=== PATIENT | male | born 1950 | race Caucasian/White ===

== ENCOUNTER 2019-11-21 00:06 | Emergency (ER) | payer MEDICARE, SELFPAY ==
--- NOTE | ~2019-11-21 | XR_ITS ---
EXAMINATION: CT abdomen pelvis wo con, XR abdomen/kub 1V DATE: 11/21/2019 01:17 INDICATION: Left flank pain. TECHNIQUE: 1. Computed tomography (CT) of the abdomen and pelvis was performed without intravenous contrast. Aut omated exposure control and iterative reconstruction technique were employed. The dose-length product was 590.76 mGy-cm. 2. Supine AP view of the abdomen and pelvis was obtained. COMPARISON: 07/04/2017 FINDINGS: Minimal atelectasis at the lingula and right middle lobe. Heart size is normal. Atherosclerotic coron elly artery calcification. No pericardial or pleural effusion. Splenic calcifications consistent with old granulomatous disease. Liver, gallbladder, pancreas and bilateral adrenal glands are normal. Ther e is mild colonic diverticulosis with a sigmoid predominance. There is no adjacent inflammatory huang ge to suggest diverticulitis. Small bowel and appendix are normal. Small fat-containing left inguinal hernia. 2 mm stone at the left ureterovesicular junction with mild left hydronephrosis. Additional 2 mm stone in the mid left kidney and a couple 2 mm stones in the right kidney. No right-sided ureteral stones or hydronephrosis. Bilateral renal cysts the largest measuring 9.9 cm at the lower pole of the left k idney. Prostatomegaly. No free intraperitoneal gas or fluid. No pathologically enlarged abdominal or pelvic lymphadenopathy. Mild lumbar spondylosis. KUB: The seventh of the left ureterovesicular junction appears subtly visible projecting along the left ma rgin of the inferior sacrum. Phlebolith in the right hemipelvis. Additional stones in the left and ri ght kidney are also visible on the plain radiographs as is the large exophytic cyst arising from the lower pole of the left kidney. Normal bowel gas pattern. IMPRESSION: 1. Bilateral nephrolithiasis with 2 mm obstructing stone at the left ureterovesicular junction with m ild left hydroureteronephrosis. Reviewed, dictated and finalized at location A. [facility] IMPRESSION: 1. Bilateral nephrolithiasis with 2 mm obstructing stone at the left ureteroves icular junction with mild left hydroureteronephrosis.
[2019-11-21 00:13] VITALS: BP 181/83; PULSE 70; RESP 18; TEMP 36.4; O2SAT 99
[2019-11-21 00:40] LABS: Basophils Absolute Auto 0.1 K/mm3 (0.0-0.1); Basophils Percent Auto 0.6 % (0.2-1.2); Eosinophils Absolute Auto 0.2 K/mm3 (0-0.3); Eosinophils Percent Auto 2.3 % (0-4.4); Hematocrit 42.9 % (42.0-52.0); Hemoglobin 13.7 g/dL (14.0-18.0); Immature Granulocyte Absolute 0.03 K/mm3 (0.00-0.031); Immature Granulocyte Percent A 0.3 % (0-0.5); Lymphocytes Absolute Auto 2.92 K/mm3 (0.9-3.2); Mean Corpuscular HGB Conc 31.9 g/dl (32-36); Mean Corpuscular Hemoglobin 31.1 pg (26-34); Mean Corpuscular Volume 97.5 fl (80-100); Mean Platelet Volume 10.9 fl (7.4-10.4); Monocytes Absolute Auto 0.8 K/mm3 (0.1-0.6); Monocytes Percent Auto 8.4 % (2.6-8.5); Neutrophils Absolute Auto 5.7 K/mm3 (1.3-6.7); Neutrophils Percent Auto 58.4 % (45.5-73.1); Platelet Count Result 205 k/mm3 (150-375); Red Cell Distribution Width 12.2 % (11.5-14.5); White Blood Count 9.7 K/mm3 (4.5-10.0)
--- NOTE | 2019-11-21 00:43 | ED_ITS ---
I attest that this documentation has been prepared under the direction and in t he presence of Diana Qureshi MD. Becky Gan Scribe 11/21/19;00:43 HPI - Abdominal Pain General Chief Complaint: Abdominal Pain Stated Complaint: flank pain Time Seen by Provider: 11/21/19 00:41 Related Data Allergies Allergy/AdvReac Type Severity Reaction Status Date / Time No Known Allergies Allergy Unverified 04/22/19 07:16 Course Vital Signs Vital signs: Vital Signs Temperature 36.4 C L 11/21/19 00:13 Pulse Rate 70 11/21/19 00:13 Respiratory Rate 18 11/21/19 00:13 Blood Pressure 181/83 H 11/21/19 00:13 Pulse Oximetry 99 11/21/19 00:13 Temperature 36.4 C L 11/21/19 00:13 Pulse Rate 70 11/21/19 00:13 Respiratory Rate 18 11/21/19 00:13 Blood Pressure 181/83 H 11/21/19 00:13 Pulse Oximetry 99 11/21/19 00:13 MDM - Abdominal Pain Lab Data Result diagrams: 11/21/19 00:18 11/21/19 00:18 Labs: Lab Results 11/21/19 11/21/19 11/21/19 Range/Units 00:18 00:18 00:19 WBC Pending RBC Pending Hgb Pending Hct Pending MCV Pending MCH Pending MCHC Pending RDW Pending Plt Count Pending MPV Pending Immature Gran % (Auto) Pending Neut % (Auto) Pending Lymph % (Auto) Pending [place] % (Auto) Pending Eos % (Auto) Pending Baso % (Auto) Pending Lymph # (Auto) Pending [place] # (Auto) Pending Eos # (Auto) Pending Baso # (Auto) Pending Abs Immat Gran (auto) Pending Absolute Neuts (auto) Pending Absolute Nucleated RBC Pending Nucleated RBC % Pending Sodium Pending Potassium Pending Chloride Pending Carbon Dioxide Pending BUN Pending Creatinine Pending Estim Creat Clear Calc Pending Estimated GFR Pending Glucose Pending Calcium Pending Urine Color Pending Urine Appearance Pending Urine pH Pending Ur Specific [place] Pending Urine Protein Pending Urine Glucose (UA) Pending Urine Ketones Pending Ur Blood (Man) Pending Urine Nitrate Pending Urine Bilirubin Pending Urine Urobilinogen Pending Leukocyte Esterase Rfl Pending
[2019-11-21 00:44] LABS: Blood Urea Nitrogen 20 mg/dL (9-20); Carbon Dioxide 27 mmol/L (22-30); Chloride 104 mmol/L (98-107); Estimated CRCL calculation 41 ml/min; Estimated Glomerular Filt Rate 46; Glucose 129 mg/dL (75-110); Potassium 4.2 mmol/L (3.4-5.0); Sodium 142 mmol/L (137-145)
--- NOTE | 2019-11-21 00:44 | ED_ITS ---
I attest that this documentation has been prepared under the direction and in t he presence of Diana Qureshi MD. Becky Gan Scribe 11/21/19;00:44 HPI - Female Genitourinary General Chief complaint: Abdominal Pain Stated complaint: flank pain Time Seen by Provider: 11/21/19 00:41 Related Data Allergies Allergy/AdvReac Type Severity Reaction Status Date / Time No Known Allergies Allergy Unverified 04/22/19 07:16 Course Vital Signs Vital signs: Vital Signs Temperature 36.4 C L 11/21/19 00:13 Pulse Rate 70 11/21/19 00:13 Respiratory Rate 18 11/21/19 00:13 Blood Pressure 181/83 H 11/21/19 00:13 Pulse Oximetry 99 11/21/19 00:13 Temperature 36.4 C L 11/21/19 00:13 Pulse Rate 70 11/21/19 00:13 Respiratory Rate 18 11/21/19 00:13 Blood Pressure 181/83 H 11/21/19 00:13 Pulse Oximetry 99 11/21/19 00:13 MDM - Female Genitourinary Lab Data Result diagrams: 11/21/19 00:18 11/21/19 00:18 Labs: Lab Results 11/21/19 11/21/19 11/21/19 Range/Units 00:18 00:18 00:19 WBC Pending RBC Pending Hgb Pending Hct Pending MCV Pending MCH Pending MCHC Pending RDW Pending Plt Count Pending MPV Pending Immature Gran % (Auto) Pending Neut % (Auto) Pending Lymph % (Auto) Pending [place] % (Auto) Pending Eos % (Auto) Pending Baso % (Auto) Pending Lymph # (Auto) Pending [place] # (Auto) Pending Eos # (Auto) Pending Baso # (Auto) Pending Abs Immat Gran (auto) Pending Absolute Neuts (auto) Pending Absolute Nucleated RBC Pending Nucleated RBC % Pending Sodium 142 (137-145) mmol/L Potassium 4.2 (3.4-5.0) mmol/L Chloride 104 (98-107) mmol/L Carbon Dioxide 27 (22-30) mmol/L BUN 20 (9-20) mg/dL Creatinine 1.50 H (0.7-1.3) mg/dL Estim Creat Clear Calc 41 ml/min Estimated GFR 46 L (59 - ) Glucose 129 H (75-110) mg/dL Calcium 9.0 (8.4-10.2) mg/dL Urine Color Pending Urine Appearance Pending Urine pH Pending Ur Specific [place] Pending Urine Protein Pending Urine Glucose (UA) Pending Urine Ketones Pending Ur Blood (Man) Pending Urine Nitrate Pending Urine Bilirubin Pending Urine Urobilinogen Pending Leukocyte Esterase Rfl Pending
--- NOTE | 2019-11-21 00:46 | ED.MALEGU ---
HPI - Male Genitourinary General Chief complaint: Abdominal Pain Stated complaint: flank pain Time Seen by Provider: 11/21/19 00:41 Source: patient and RN notes reviewed Mode of arrival: other Limitations: no limitations History of Present Illness HPI Narrative: Pt is a 69 y/o male who presents to the ED with c/o left flank pain that began yesterday (11/20/19). Pt states that he took pain medication yesterday at 11:40 PM and his sx are currently better. Pt states that he has been passing gas and he had a regular BM yesterday. Pt has a hx of kidney stones and he states his sx are similar to whenever he had a kidney stone. Pt reports resolved nausea, but denies vomiting, testicular pain, and dark colored urine. Pt is taking ASA 81 mg daily. Related Data Allergies Allergy/AdvReac Type Severity Reaction Status Date / Time No Known Allergies Allergy Unverified 04/22/19 07:16 [facility] Past Medical History Medical History (Updated 11/21/19 @ 00:51 by Becky Gan) Gout HTN (hypertension) Hyperlipidemia Kidney stone Surgical History Surgical History (Updated 11/21/19 @ 00:45 by Becky Gan) Hx of CABG x3 Hx of tonsillectomy Course Vital Signs Vital signs: Vital Signs Temperature 36.4 C L 11/21/19 00:13 Pulse Rate 70 11/21/19 00:13 Respiratory Rate 18 11/21/19 00:13 Blood Pressure 181/83 H 11/21/19 00:13 Pulse Oximetry 99 11/21/19 00:13 Temperature 36.4 C L 11/21/19 00:13 Pulse Rate 70 11/21/19 00:13 Respiratory Rate 18 11/21/19 00:13 Blood Pressure 181/83 H 11/21/19 00:13 Pulse Oximetry 99 11/21/19 00:13 MDM - Male Genitourinary Lab Data Result diagrams: 11/21/19 00:18 11/21/19 00:18 Labs: Lab Results 11/21/19 11/21/19 11/21/19 Range/Units 00:18 00:18 00:19 WBC Pending RBC Pending Hgb Pending Hct Pending MCV Pending MCH Pending MCHC Pending RDW Pending Plt Count Pending MPV Pending Immature Gran % (Auto) Pending Neut % (Auto) Pending Lymph % (Auto) Pending [place] % (Auto) Pending Eos % (Auto) Pending Baso % (Auto) Pending Lymph # (Auto) Pending [place] # (Auto) Pending Eos # (Auto) Pending Baso # (Auto) Pending Abs Immat Gran (auto) Pending Absolute Neuts (auto) Pending Absolute Nucleated RBC Pending Nucleated RBC % Pending Sodium 142 (137-145) mmol/L Potassium 4.2 (3.4-5.0) mmol/L Chloride 104 (98-107) mmol/L Carbon Dioxide 27 (22-30) mmol/L BUN 20 (9-20) mg/dL Creatinine 1.50 H (0.7-1.3) mg/dL Estim Creat Clear Calc 41 ml/min Estimated GFR 46 L (59 - ) Glucose 129 H (75-110) mg/dL Calcium 9.0 (8.4-10.2) mg/dL Urine Color Yellow (Yellow) Urine Appearance Cloudy H (Clear) Urine pH 5.0 (5.0-9.0) Ur Specific [place] 1.027 (1.001-1.035) Urine Protein 1+ H (Negative) mg/dL Urine Glucose (UA) Negative (Negative) mg/dL Urine Ketones Negative (Negative) mg/dL Ur Blood (Man) 3+ H (Negative) Urine Nitrate Negative (Negative) Urine Bilirubin Negative (Negative) Urine Urobilinogen Negative (<2.0) mg/dL Leukocyte Esterase Rfl Negative (Negative) [place]ELSEY/UL Urine RBC >75 H (0-2) /hpf Urine WBC 0-3 /hpf Urine Mucus Few H /lpf
[2019-11-21 00:51] LABS: Add Urine Microscopic? YES; Appearance Urine Cloudy (Clear); Bilirubin Urine Negative (Negative); Blood Urine 3+ (Negative); Color Urine Yellow (Yellow); Glucose Urine UA Negative (Negative); Ketones Urine Negative (Negative); Leukocyte Esterase Ur Negative LEU/UL (Negative); Mucus Urine Few /lpf; Nitrate Urine Negative (Negative); Protein Urine 1+ mg/dL (Negative); RBC Urine >75 /hpf (0-2); Specific Grav Ur 1.027 (1.001-1.035); Urobilinogen Urine Negative mg/dL (<2.0); WBC Urine 0-3 /hpf
--- NOTE | 2019-11-21 00:53 | ED.ABDPAIN ---
HPI - Abdominal Pain General Chief Complaint: Abdominal Pain Stated Complaint: flank pain Time Seen by Provider: 11/21/19 00:41 Source: patient and RN notes reviewed Mode of arrival: other Limitations: no limitations History of Present Illness HPI narrative: Pt is a 69 y/o male who presents to the ED with c/o left flank pain that began yesterday (11/20/19). Pt states that he took pain medication yesterday at 11:40 PM and his sx are currently better. Pt states that he has been passing gas and he had a regular BM yesterday. Pt has a hx of kidney stones and he states his sx are similar to whenever he had a kidney stone. Pt reports resolved nausea, but denies vomiting, testicular pain, and dark colored urine. Pt is taking ASA 81 mg daily. MD elicited complaint: flank pain Pertinent past history: kidney stones Onset (ago): day(s) (1) Pain Consistency: other (currently better) Location: L flank Relieving factors: medication Associated symptoms: nausea (resolved) Treatments prior to arrival: other (pain medication) Related Data Allergies Allergy/AdvReac Type Severity Reaction Status Date / Time No Known Allergies Allergy Unverified 04/22/19 07:16 Review of Systems Review of Systems: All systems reviewed & are unremarkable except as noted in HPI and below Gastrointestinal: Gastrointestinal: Reports nausea (resolved) and Denies vomiting Genitourinary: Genitourinary: Reports flank pain (left), Denies testicular pain and Denies other (dark colored urine) PMFSH Past Medical History Medical History (Updated 11/21/19 @ 01:46 by Diana Qureshi MD) Gout HTN (hypertension) Hyperlipidemia Kidney stone Surgical History Surgical History (Updated 11/21/19 @ 00:45 by Becky Gan) Hx of CABG x3 Hx of tonsillectomy Social History Social History (Updated 11/21/19 @ 00:55 by Becky Gan) Smoking status: Never smoker Gender identity (if verbalized by the patient): Male Exam Narrative: Exam Narrative: GENERAL: Well-appearing, well-nourished, and in no acute distress. HEAD: Normocephalic, atraumatic EYES: PERRLA and EOMI, conjunctiva clear without discharge THROAT:Mucous membranes moist, Oropharynx normal without erythema, exudate, peritonsillar swelling or fluctuance NECK: Supple, without lymphadenopathy or mass RESPIRATORY: No respiratory distress, Airway patent, Respirations non-labored, Clear to auscultation without rales, rhonchi or wheeze HEART: Regular rate and rhythm. No murmur heard. Normal peripheral pulses. ABDOMEN: Soft, nontender, nondistended, normal active bowel sounds. No masses. No rebound or guarding, No organomegaly. EXTREMITIES: No edema, normal strength with full range of motion. SKIN: Warm, dry, normal color without rash NEURO: Alert and oriented x3. CN 2-12 grossly intact. No focal deficits. PSYCH: Normal mood and affect. Course Reevaluation(s) Reevaluation #1: I have discussed with patient CT shows right UVJ stone. He states his pain is minimal. Date: 11/21/19 Time: 01:43 Vital Signs Vital signs: Vital Signs Temperature 97.5 F L 11/21/19 00:13 Pulse Rate 70 11/21/19 00:13 Respiratory Rate 18 11/21/19 00:13 Blood Pressure 181/83 H 11/21/19 00:13 Pulse Oximetry 99 11/21/19 00:13 Temperature 98.6 F 11/21/19 01:53 Pulse Rate 81 11/21/19 01:53 Respiratory Rate 16 11/21/19 01:53 Blood Pressure 135/88 11/21/19 01:53 Pulse Oximetry 100 11/21/19 01:53 MDM - Abdominal Pain Lab Data Result diagrams: 11/21/19 00:18 11/21/19 00:18 Labs: Lab Results 11/21/19 11/21/19 11/21/19 Range/Units 00:18 00:18 00:19 WBC 9.7 (4.5-10.0) K/mm3 RBC 4.40 L (4.6-6.20) M/mm3 Hgb 13.7 L (14.0-18.0) g/dL Hct 42.9 (42.0-52.0) % MCV 97.5 (80-100) fl MCH 31.1 (26-34) pg MCHC 31.9 L (32-36) g/dl RDW 12.2 (11.5-14.5) % Plt Count 205 (150-375) k/mm3 MPV 10.9 H (7.4-10.4)
[2019-11-21 01:16] VITALS: BP 140/88; PULSE 88; RESP 16; TEMP 37; O2SAT 100
[2019-11-21] MEDS: TAMSULOSIN HCL 0.4 MG CAPSULE PO (01:52)
[2019-11-21 01:53] VITALS: BP 135/88; PULSE 81; RESP 16; TEMP 37; O2SAT 100
== END 2019-11-21 01:54 | disposition home or self-care (01) ==
PROVIDERS: Emergency Provider General Practice
DX: N13.2 Hydronephrosis with renal and ureteral calculous obstruction (principal); Z79.82 Long term (current) use of aspirin; M10.9 Gout, unspecified; I10 Essential (primary) hypertension; E78.5 Hyperlipidemia, unspecified; Z87.440 Personal history of urinary (tract) infections; I25.10 Atherosclerotic heart disease of native coronary artery without angina pectoris; Z95.1 Presence of aortocoronary bypass graft
CPT/HCPCS: 36415; 74018; 74176; 80048; 81001; 85025; 99284; A9270

== ENCOUNTER → 2021-01-07 06:48 | Outpatient (CLI) | payer MEDICARE, SELFPAY ==
[2021-01-07 16:23] LABS: SARS-CoV-2 RNA PCR Negative
== END ==
DX: Z20.822 Contact with and (suspected) exposure to COVID-19 (principal); R09.89 Other specified symptoms and signs involving the circulatory and respiratory systems
CPT/HCPCS: C9803; U0003; U0005

== ENCOUNTER 2021-04-25 00:40 | Emergency (ER) | payer MEDICARE, SELFPAY ==
--- NOTE | ~2021-04-25 | CT_ITS ---
EXAMINATION: CT abdomen pelvis wo con DATE: 04/25/2021 02:57 INDICATION: Flank pain and hematuria TECHNIQUE: Computed tomography (CT) of the abdomen and pelvis was performed without intravenous contr ast. Automated exposure control and iterative reconstruction technique were employed. The dose-length product was 246.00 mGy-cm. COMPARISON: 11/21/2019 FINDINGS: Minimal atelectasis/scarring at the right middle lobe and lingula. Heart size is normal. Atherosclero tic coronary artery calcific location. No pericardial or pleural effusion. Small sliding-type hiatal hernia. Liver, gallbladder and bilateral adrenal glands are normal. Small dystrophic calcific a cyst at the tail of the pancreas which were present sequela of chronic pancreatitis. Multiple splenic calc ifications consistent with old granulomatous disease. Several low-attenuation left renal cysts the la rgest measuring 10 cm at the lower pole. Bilateral nephrolithiasis with a couple nonobstructing right renal stones measuring 1 mm and 3 mm. There is a 4-5 mm stone at the left ureteropelvic junction res ulting in mild left hydronephrosis and perinephric stranding. No other stones along the ureters or ri ght-sided hydronephrosis. There is mild colonic diverticulosis with descending and sigmoid predominan ce. There is no adjacent inflammatory change to suggest diverticulitis. Small bowel and appendix are normal. Bladder is normal. Prostatomegaly. No free intraperitoneal gas or fluid. No pathologically e nlarged abdominal or pelvic lymphadenopathy. Mild lumbar spondylosis. IMPRESSION: 1. Lateral nephrolithiasis with obstructing 4-5 mm stone at the left ureteropelvic junction with mild left hydronephrosis. Reviewed, dictated and finalized at location A. IMPRESSION: 1. Lateral nephrolithiasis with obstructing 4-5 mm stone at the left ureteropel baldomero junction with mild left hydronephrosis.
[2021-04-25 01:03] VITALS: BP 136/72; PULSE 72; RESP 18; TEMP 37.1; O2SAT 96
[2021-04-25 01:09] LABS: Basophils Absolute Auto 0.1 K/mm3 (0.0-0.1); Basophils Percent Auto 0.4 % (0.2-1.2); Eosinophils Absolute Auto 0.3 K/mm3 (0-0.3); Eosinophils Percent Auto 1.8 % (0-4.4); Hemoglobin 13.8 g/dL (14.0-18.0); Immature Granulocyte Absolute 0.04 K/mm3 (0.00-0.031); Immature Granulocyte Percent A 0.3 % (0-0.5); Lymphocytes Absolute Auto 1.59 K/mm3 (0.9-3.2); Lymphocytes Percent Auto 11.2 % (18.3-44.2); Mean Corpuscular HGB Conc 32.1 g/dl (32-36); Mean Corpuscular Hemoglobin 30.1 pg (26-34); Mean Corpuscular Volume 93.7 fl (80-100); Mean Platelet Volume 10.6 fl (7.4-10.4); Monocytes Absolute Auto 0.8 K/mm3 (0.1-0.6); Monocytes Percent Auto 5.3 % (2.6-8.5); Neutrophils Absolute Auto 11.5 K/mm3 (1.3-6.7); Platelet Count Result 206 k/mm3 (150-375); Red Blood Count 4.59 M/mm3 (4.6-6.20); Red Cell Distribution Width 12.5 % (11.5-14.5); White Blood Count 14.2 K/mm3 (4.5-10.0)
[2021-04-25 01:23] LABS: Anion Gap 10 mmol/L (8-16); Blood Urea Nitrogen 22 mg/dL (9-20); Calcium 9.4 mg/dL (8.4-10.2); Carbon Dioxide 23 mmol/L (22-30); Chloride 106 mmol/L (98-107); Estimated CRCL calculation 39 ml/min; Estimated Glomerular Filt Rate 46; Glucose 175 mg/dL (65-110); Potassium 4.7 mmol/L (3.4-5.0); Sodium 139 mmol/L (137-145)
[2021-04-25 02:06] LABS: Add Urine Microscopic? YES; Appearance Urine Clear (Clear); Bacteria Urine Trace /hpf; Bilirubin Urine Negative (Negative); Blood Urine 3+ (Negative); Color Urine Yellow (Yellow); Glucose Urine UA Negative (Negative); Ketones Urine Negative (Negative); Leukocyte Esterase Ur Negative LEU/UL (Negative); Mucus Urine Rare /lpf; Nitrate Urine Negative (Negative); Protein Urine Negative (Negative); RBC Urine >75 /hpf (0-2); Specific Grav Ur 1.024 (1.001-1.035); Squamous Epithelial Cell Urine Rare /hpf (Few); Urobilinogen Urine Negative mg/dL (<2.0)
[2021-04-25 02:49] VITALS: BP 136/72; PULSE 72; RESP 18; TEMP 37.1; O2SAT 97
[2021-04-25] MEDS: SODIUM CHLORIDE 0.9% IV 1,000 ML 999 ML IV CONT (03:11)
[2021-04-25] MEDS: ONDANSETRON INJ 4 MG/2 ML VIAL IV PUSH (03:13)
[2021-04-25] MEDS: MORPHINE SULFATE (*CRX) 4 MG/ML INJ IV PUSH (03:13)
[2021-04-25] MEDS: KETOROLAC 30 MG/ML VIAL (*BKC) 15 MG IV PUSH (03:14)
--- NOTE | 2021-04-25 03:46 | ED.GENADULT ---
HPI - General Adult General Chief complaint: Abdominal Pain Stated complaint: kidney stones Time Seen by Provider: 04/25/21 02:45 History of Present Illness HPI narrative: Patient 71-year-old gentleman presents the emergency department with chief complaint of left flank pain. Patient reports that he has history of kidney stones and started having pain in his left lower quadrant that radiates to his back. Patient states the pain is sharp reports not improved by anything nor is worsened by patient she had a bit of nausea and one episode of vomiting. Patient denies fevers denies diarrhea. The patient reports that previously has had one episode of kidney stones are required with the but otherwise has not required stent placement for in the past. Related Data Allergies Allergy/AdvReac Type Severity Reaction Status Date / Time No Known Allergies Allergy Verified 04/25/21 03:06 Review of Systems Review of Systems: Narrative: A 10 system review of systems was completed on the patient and is negative except for what is stated in the HPI. Nursing and ancillary documentation was reviewed. [facility] Past Medical History Medical History Gout HTN (hypertension) Hyperlipidemia Kidney stone Surgical History Surgical History Hx of CABG x3 Hx of tonsillectomy Social History Social History Smoking status: Never smoker Gender identity (if verbalized by the patient): Male Exam Narrative: Exam Narrative: GENERAL: Well-appearing, well-nourished, and in no acute distress. HEAD: Normocephalic, atraumatic. EYES: PERRLA and EOMI. ENT: Nares clear, no rhinorrhea or epistaxis. Mucous membranes moist. NECK: Supple. CHEST: Clear to auscultation. No respiratory distress. HEART: Regular rate and rhythm. No murmur heard. Normal peripheral pulses. ABDOMEN: Soft, nontender, nondistended, normal active bowel sounds. EXTREMITIES: Normal range of motion. No edema. SKIN: Warm, dry, no rash. NEURO: No focal deficits. Alert and oriented x3. PSYCH: Normal mood and affect. Course Course Emergency Course: CT scan of the abdomen pelvis showed evidence of a 6 to 7 mm stone in the proximal ureter with mild hydro-nephrosis Vital Signs Vital signs: Vital Signs Temperature 37.1 C 04/25/21 01:03 Pulse Rate 72 04/25/21 01:03 Respiratory Rate 18 04/25/21 01:03 Blood Pressure 136/72 04/25/21 01:03 Pulse Oximetry 96 04/25/21 01:03 Temperature 37.1 C 04/25/21 02:49 Pulse Rate 72 04/25/21 02:49 Respiratory Rate 18 04/25/21 02:49 Blood Pressure 136/72 04/25/21 02:49 Pulse Oximetry 97 04/25/21 02:49 Medical Decision Making Vital Signs Vital Signs: Vital Signs Temperature 37.1 C 04/25/21 01:03 Pulse Rate 72 04/25/21 01:03 Respiratory Rate 18 04/25/21 01:03 Blood Pressure 136/72 04/25/21 01:03 Pulse Oximetry 96 04/25/21 01:03 Temperature 37.1 C 04/25/21 02:49 Pulse Rate 72 04/25/21 02:49 Respiratory Rate 18 04/25/21 02:49 Blood Pressure 136/72 04/25/21 02:49 Pulse Oximetry 97 04/25/21 02:49 Lab Data Result diagrams: 04/25/21 01:02 04/25/21 01:02 Labs: Lab Results 04/25/21 04/25/21 04/25/21 Range/Units 01:02 01:02 01:45 WBC 14.2 H (4.5-10.0) K/mm3 RBC 4.59 L (4.6-6.20) M/mm3 Hgb 13.8 L (14.0-18.0) g/dL Hct 43.0 (42.0-52.0) % MCV 93.7 (80-100) fl MCH 30.1 (26-34) pg MCHC 32.1 (32-36) g/dl RDW 12.5 (11.5-14.5) % Plt Count 206 (150-375) k/mm3 MPV 10.6 H (7.4-10.4) fl Immature Gran % (Auto) 0.3 (0-0.5) % Neut % (Auto) 81.0 H (45.5-73.1) % Lymph % (Auto) 11.2 L (18.3-44.2) % [place] % (Auto) 5.3 (2.6-8.5) % Eos % (Auto) 1.8 (0-4.4) % Baso % (Auto) 0.4 (0.2-1.2) % Lymph # (Au
[2021-04-25] MEDS: TAMSULOSIN HCL 0.4 MG CAPSULE PO (05:40)
[2021-04-25 06:11] VITALS: BP 129/99; PULSE 82; RESP 18; O2SAT 100
== END 2021-04-25 05:33 | disposition home or self-care (01) ==
PROVIDERS: Emergency Provider Emergency Medicine; PCP Family Medicine
DX: N13.2 Hydronephrosis with renal and ureteral calculous obstruction (principal); I10 Essential (primary) hypertension; M10.9 Gout, unspecified; E78.5 Hyperlipidemia, unspecified; Z87.442 Personal history of urinary calculi
CPT/HCPCS: 36415; 74176; 80048; 81001; 85025; 96361; 96374; 96375; 99284; A9270; J1885; J2270; J2405; J7030

== ENCOUNTER 2021-04-26 09:52 | Observation (INO) | payer MEDICARE, SELFPAY ==
[2021-04-26] VITALS (8 sets, daily range): BP systolic 96–166; BP diastolic 55–68; PULSE 57–70; RESP 11–18; TEMP 36.1–36.9; O2SAT 93–98
--- NOTE | ~2021-04-26 | XR_ITS ---
EXAMINATION: XR abdomen/kub 1V INDICATION: Kidney stone TECHNIQUE: Supine views of the abdomen were obtained on 2 radiographs. COMPARISON: 11/21/[address] from yesterday FINDINGS: The stone described at the left ureteropelvic junction on yesterday's CT is not definitely identified. A large cyst projects from the left kidney lower pole. Punctate left upper quadrant calci fications are consistent with healed granulomatous disease of the spleen. The bowel gas pattern is no rmal. There is moderate osteoarthritis of the hips. IMPRESSION: 1. No definite urolithiasis identified. Reviewed, dictated and finalized at location A.
--- NOTE | ~2021-04-26 | XR_ITS ---
EXAMINATION: XR retrograde pyelo w/stent LT DATE: 04/26/2021 16:57 INDICATION: Left ureteral stone TECHNIQUE: 8 fluoroscopic images of the abdomen and pelvis were obtained during urologic procedure pe rformed by Dr. Roper. Radiologist was not present for the imaging or procedure. The amount of fluo roscopy time used during this procedure was 0.2 minutes. COMPARISON: None. FINDINGS: The stone at the proximal left ureter is unable to be identified on the director of rooms images. Subsequent imag es demonstrate contrast injection into the left ureter which appears to outline the stone in the prox imal left ureter. There is mild left hydronephrosis. Subsequent images demonstrate placement of a lef t internal ureteral stent over a wire with the loop formed in the left renal pelvis. IMPRESSION: 1. Proximal left ureteral stone with mild left hydronephrosis. 2. Placement of a left internal ureteral stent with proximal loop in the left renal pelvis. It is unc lear from the provided images whether the stone has been extracted or refluxed back into the left maria c al collecting system. Reviewed, dictated and finalized at location A. IMPRESSION: 1. Proximal left ureteral stone with mild left hydronephrosis. 2. Placement of a left internal ureteral stent with proximal loop in the left r enal pelvis. It is unclear from the provided images whether the stone has been extracted or refluxed back into the left renal collecting system.
[2021-04-26 10:18] LABS: Basophils Percent Auto 0.3 % (0.2-1.2); Eosinophils Absolute Auto 0.1 K/mm3 (0-0.3); Eosinophils Percent Auto 1.1 % (0-4.4); Hematocrit 39.5 % (42.0-52.0); Hemoglobin 12.7 g/dL (14.0-18.0); Immature Granulocyte Absolute 0.06 K/mm3 (0.00-0.031); Immature Granulocyte Percent A 0.5 % (0-0.5); Lymphocytes Absolute Auto 1.71 K/mm3 (0.9-3.2); Mean Corpuscular HGB Conc 32.2 g/dl (32-36); Mean Corpuscular Hemoglobin 30.5 pg (26-34); Mean Corpuscular Volume 94.7 fl (80-100); Monocytes Percent Auto 7.8 % (2.6-8.5); Neutrophils Absolute Auto 9.4 K/mm3 (1.3-6.7); Neutrophils Percent Auto 76.3 % (45.5-73.1); Platelet Count Result 169 k/mm3 (150-375); Red Blood Count 4.17 M/mm3 (4.6-6.20); Red Cell Distribution Width 12.7 % (11.5-14.5); White Blood Count 12.3 K/mm3 (4.5-10.0)
[2021-04-26 10:42] LABS: Anion Gap 10 mmol/L (8-16); Blood Urea Nitrogen 27 mg/dL (9-20); Calcium 9.1 mg/dL (8.4-10.2); Carbon Dioxide 22 mmol/L (22-30); Chloride 106 mmol/L (98-107); Estimated CRCL calculation 28 ml/min; Estimated Glomerular Filt Rate 31; Glucose 113 mg/dL (65-110); Potassium 4.9 mmol/L (3.4-5.0); Sodium 138 mmol/L (137-145)
[2021-04-26] MEDS: SODIUM CHLORIDE 0.9% IV 1,000 ML 999 ML IV CONT ×2 (11:04→12:18)
[2021-04-26] MEDS: ONDANSETRON INJ 4 MG/2 ML VIAL IV PUSH ×2 (11:05→14:08)
[2021-04-26] MEDS: MORPHINE SULFATE (*CRX) 4 MG/ML INJ IV PUSH ×2 (11:05→14:09)
[2021-04-26] MEDS: FAMOTIDINE 20 MG/2 ML VIAL IV PUSH ×2 (11:06→21:27)
[2021-04-26 13:04] LABS: Add Urine Microscopic? YES; Appearance Urine Turbid (Clear); Bacteria Urine Trace /hpf; Bilirubin Urine Negative (Negative); Blood Urine 2+ (Negative); Color Urine Yellow (Yellow); Glucose Urine UA Negative (Negative); Ketones Urine Negative (Negative); Leukocyte Esterase Ur Negative LEU/UL (Negative); Mucus Urine Rare /lpf; Nitrate Urine Negative (Negative); Protein Urine Negative (Negative); RBC Urine 21-50 /hpf (0-2); Squamous Epithelial Cell Urine Rare /hpf (Few); Uric Acid Crystals Urine Many /hpf; Urobilinogen Urine Negative mg/dL (<2.0); WBC Urine 16-20 /hpf
--- NOTE | 2021-04-26 14:00 | ED.FALL ---
HPI - Fall General Chief Complaint: Urogenital-Male <Marques Teague PA-C - Last Filed: 04/26/21 14:04> Stated Complaint: KIDNEY STONES <Marques Teague PA-C - Last Filed: 04/26/21 14:04> Time Seen by Provider: 04/26/21 10:06 <Marques Teague PA-C - Last Filed: 04/26/21 14:04> Source: patient, family, RN notes reviewed and old records reviewed <Marques Teague PA-C - Last Filed: 04/26/21 14:04> Mode of arrival: ambulatory <Marques Teague PA-C - Last Filed: 04/26/21 14:04> Limitations: no limitations <Marques Teague PA-C - Last Filed: 04/26/21 14:04> History of Present Illness HPI Narrative: Patient is a 71-year-old male who presents to emergency department for evaluation of continued flank pain was evaluated last night diagnosed with kidney stone presents today with continued pain despite medications patient notes some nausea vomiting denies any other complaints on arrival does not appear uncomfortable or distressed does have a history of kidney stones <Marques Teague PA-C - Last Filed: 04/26/21 14:04> Related Data Allergies/Adverse Reactions: Allergies Allergy/AdvReac Type Severity Reaction Status Date / Time No Known Allergies Allergy Verified 04/26/21 09:53 <Marques Teague PA-C - Last Filed: 04/26/21 14:04> Review of Systems Review of Systems: All systems reviewed & are unremarkable except as noted in HPI and below <Marques Teague PA-C - Last Filed: 04/26/21 14:04> [facility] Past Medical History Medical History: Medical History Gout HTN (hypertension) Hyperlipidemia Kidney stone <GLADYS Mendoza Last Filed: 04/26/21 14:04> Surgical History Surgical History: Surgical History Hx of CABG x3 Hx of tonsillectomy <Marques Teague PA-C - Last Filed: 04/26/21 14:04> Social History Social History: Social History Smoking status: Never smoker Gender identity (if verbalized by the patient): Male <Marques Teague PA-C - Last Filed: 04/26/21 14:04> Exam Narrative: Exam Narrative: GENERAL: Well-appearing, well-nourished, and in no acute distress. HEAD: Normocephalic, atraumatic. EYES: PERRLA and EOMI. ENT: Nares clear, no rhinorrhea or epistaxis. Mucous membranes moist. CHEST: Clear to auscultation. No respiratory distress. No wheezes rales or rhonchi HEART: Regular rate and rhythm. No murmur heard. Normal peripheral pulses. ABDOMEN: Soft, nontender, nondistended EXTREMITIES: Normal range of motion. No edema. SKIN: Warm, dry, no rash. NEURO: No focal deficits. Alert and oriented x3. PSYCH: Normal mood and affect. <Marques Teague PA-C - Last Filed: 04/26/21 14:04> Course Course Emergency Course: Patient evaluated the emergency department for kidney stones will be placed in hospital with urological consultation been hydrated given medications in the emergency department afebrile nontoxic-appearing without emesis pain well controlled <Marques Teague PA-C - Last Filed: 04/26/21 14:04> [employer]ER/PA Physician Supervision For this patient encounter, I reviewed the SHANK PIECE TACKER or PA documentation, treatment plan, and medical decision making; and I had [id number] time with this patient. 71 yo male with previously diagnosed kidney stone returns to the ED for uncontrolled pain. Very uncomfortable on exam. Vitals stable. Plan to admit for pain control. aware. <Remy Adkins MD - Last Filed: 04/26/21 15:36> Consultations Consultation #1: Discussed case with Dr. Collazo the urologist who will consult on patient Discussed case with the hospitalist Annabella who is agreed to accept the patient <Marques Teague PA-C - Last Filed: 04/26/21 14:04> Date: 04/26/21 <Marques Teague PA-C - Last Filed: 04/26/21 14:04> Vital Signs Lynda
[2021-04-26] MEDS: SODIUM CHLORIDE 0.9% IV 1,000 ML 75 ML IV CONT (14:13)
--- NOTE | 2021-04-26 15:37 | WPDURCON ---
Assessment and Plan Assessment and plan (1) Urolithiasis: Code(s): N20.9 - Urinary calculus, unspecified Status: Acute Additional Plan 71M with an obstructing 4 mm proximal left ureteral stone and nausea/vomiting and worsening serum creatinine who re-presented to the ER at [facility] for evaluation. 1. To OR for cystoscopy and left ureteral stent placement. 2. Rocephin 2g IV--now. 3. Agree with admission to hospital medicine. 4. Likely home tomorrow, pending clinical course. We discussed plan for cystoscopy and ureteral stent placement. As he has had chills today with some malaise we will defer definitive stone management with delayed ureteroscopy and laser lithotripsy, the patient is in agreement with this plan. Pamela Roper MD [facility] Consult Note HPI Date Seen: 04/26/21 Requesting Physician: Juvenal Mathew MD Primary Care Provider: [employer]PPL[employer]OLLER PHYSICIAN Consult Narrative Narrative: Jose R Cotton is a 71 year old male who presented to the ER with left flank pain yesterday and was discharged with MET. He returned to the ER this morning with flank pain and nausea with vomiting. Since yesterday his SCr has risen from 1.50 to 2.1, his WBC is stable at 12, his UA is turbid with 16-20 WBC but nitrite/LE negative. He reports peristent colicky flank pain as well as chills earlier this afternoon. He has not had a fever to his knowledge. The patient reports a lithotripsy many years ago for nephrolithias. He has had a CABG and in January a rotator cuff repair. Review of Systems Constitutional: Constitutional: Reports as per HPI, Denies body ache(s), Reports chills, Reports fatigue, Denies fever(s) and Denies increased appetite Cardiovascular: Cardiovascular: Reports as per HPI Respiratory: Respiratory: Reports as per HPI Gastrointestinal: Gastrointestinal: Reports abdominal pain, Denies change in bowel habits, Reports nausea and Reports vomiting Genitourinary: Genitourinary: Denies genital pain, Denies dysuria, Reports flank pain, Denies urinary frequency and Denies urinary urgency Musculoskeletal: Musculoskeletal: Reports no additional musculoskeletal complaints Integumentary/Breasts: Skin/Breast: Reports system reviewed and no additional complaints, except as docu Neurologic: Reports system reviewed and no additional complaints, except as documented Psychiatric: Psychiatric: Reports no additional psychiatric complaints Endocrine: Endocrine: Reports no additional endocrine complaints [facility] Past Medical History Medical History Gout HTN (hypertension) Hyperlipidemia Kidney stone Surgical History Surgical History Hx of CABG x3 Hx of tonsillectomy Social History Social History Smoking status: Never smoker Gender identity (if verbalized by the patient): Male Meds Home Medications and Allergies Home Medications Medication Instructions Recorded Confirmed Type hydrocodone-acetaminophen 1 tablet PO Q6H PRN #7 tablet 11/21/19 Rx hydrocodone-acetaminophen 1 tablet PO Q6H PRN 3 Days #12 04/25/21 Rx tablet ondansetron 4 mg PO Q8H PRN #10 tablet 04/25/21 Rx tamsulosin [Flomax] 0.4 mg PO DAILY #10 cap 04/25/21 Rx Allergies Allergy/AdvReac Type Severity Reaction Status Date / Time No Known Allergies Allergy Verified 04/26/21 09:53 Vital Signs Vital Signs - 24 hr 04/26/21 10:04 04/26/21 14:24 Temperature 98.2 F Pulse Rate 60 57 L Respiratory Rate 18 18 Blood Pressure 139/66 166/66 H Pulse Oximetry 97 94 Exam Const: General: cooperative, healthy appearing and alert; No comfortable HENMT: Head: normal to inspection Ears: hearing grossly normal bilaterally Face and sinus: normal facial exam Resp: Effort & Inspection: normal respiratory effort, able to speak in complete sentences, norm
--- NOTE | 2021-04-26 15:48 | WPDHPUPDATE1 ---
History and Physical Update Update Date/Time: 04/26/21 15:48 History and Physical has been reviewed, including an updated exam of the patient. There are NO changes in the patient's condition. Risks, benefits, and alternatives have been discussed and questions answered. Patient agrees to proceed with procedure.
--- NOTE | 2021-04-26 15:51 | ADMGEN ---
This patient, Jose R Cotton, was admitted to Medical Room 348-. Patient/family oriented to hospital policies and general routines including ID bracelet, bed and alarms, visiting hours, pain management, procedures, bathroom and other care routines, personal items, smoking policy, room service/diet, and visiting hours. Information on how to activate the Rapid Response Team has been discussed. Patient/Family are encouraged to report perceived risks to care and to ask questions if they do not understand what they are told or what they should do.
--- NOTE | 2021-04-26 16:05 | WPDANESEPP ---
Anes - Eval Pre Procedure Procedure: Cystoscopy with left stent placement Date/Time: 04/26/21 16:05 Surgeon: earle Preop Diagnosis: left renal calculus Pre Op Diagnosis: Urolithiasis, acute kidney injury Patient Data Age: 71 Gender: M Height: 1.73 m Weight: 85.45 kg Last Vital Signs Temp 36.8 C 04/26/21 10:04 Pulse 57 L 04/26/21 14:24 Resp 18 04/26/21 14:24 BP 166/66 H 04/26/21 14:24 Pulse Ox 94 04/26/21 14:24 Allergies Allergy/AdvReac Type Severity Reaction Status Date / Time No Known Allergies Allergy Verified 04/26/21 09:53 Home Medications Medication Instructions Recorded Confirmed Type hydrocodone-acetaminophen 1 tablet PO Q6H PRN #7 tablet 11/21/19 Rx hydrocodone-acetaminophen 1 tablet PO Q6H PRN 3 Days #12 04/25/21 Rx tablet ondansetron 4 mg PO Q8H PRN #10 tablet 04/25/21 Rx tamsulosin [Flomax] 0.4 mg PO DAILY #10 cap 04/25/21 Rx Laboratory Tests 04/26/21 04/26/21 04/26/21 10:00 10:00 10:00 WBC 12.3 K/mm3 H K/mm3 (4.5-10.0) RBC 4.17 M/mm3 L M/mm3 (4.6-6.20) Hgb 12.7 g/dL L g/dL (14.0-18.0) Hct 39.5 % L % (42.0-52.0) MCV 94.7 fl fl (80-100) MCH 30.5 pg pg (26-34) MCHC 32.2 g/dl g/dl (32-36) RDW 12.7 % % (11.5-14.5) Plt Count 169 k/mm3 k/mm3 (150-375) MPV 11.0 fl H fl (7.4-10.4) Immature Gran % (Auto) 0.5 % % (0-0.5) Neut % (Auto) 76.3 % H % (45.5-73.1) Lymph % (Auto) 14.0 % L % (18.3-44.2) [place] % (Auto) 7.8 % % (2.6-8.5) Eos % (Auto) 1.1 % % (0-4.4) Baso % (Auto) 0.3 % % (0.2-1.2) Lymph # (Auto) 1.71 K/mm3 K/mm3 (0.9-3.2) [place] # (Auto) 1.0 K/mm3 H K/mm3 (0.1-0.6) Eos # (Auto) 0.1 K/mm3 K/mm3 (0-0.3) Baso # (Auto) 0.0 K/mm3 K/mm3 (0.0-0.1) Abs Immat Gran (auto) 0.06 K/mm3 H K/mm3 (0.00-0.031) Absolute Neuts (auto) 9.4 K/mm3 H K/mm3 (1.3-6.7) Absolute Nucleated RBC 0.0 K/mm3 K/mm3 (0.0-0.012) Nucleated RBC % 0.0 % % (0.0-0.2) Sodium 138 mmol/L mmol/L (137-145) Potassium 4.9 mmol/L mmol/L (3.4-5.0) Chloride 106 mmol/L mmol/L (98-107) Carbon Dioxide 22 mmol/L mmol/L (22-30) Anion Gap 10 mmol/L mmol/L (8-16) BUN 27 mg/dL H mg/dL (9-20) Creatinine 2.10 mg/dL H mg/dL (0.7-1.3) Estim Creat Clear Calc 28 ml/min ml/min Estimated GFR 31 L (59 - ) Glucose 113 mg/dL H mg/dL (65-110) Calcium 9.1 mg/dL mg/dL (8.4-10.2) Urine Color Yellow (Yellow) Urine Appearance Turbid H (Clear) Urine pH 5.0 (5.0-9.0) Ur Specific [place] 1.030 (1.001-1.035) Urine Protein Negative mg/dL mg/dL (Negative) Urine Glucose (UA) Negative mg/dL mg/dL (Negative) Urine Ketones Negative mg/dL mg/dL (Negative) Ur Blood (Man) 2+ H (Negative) Urine Nitrate Negative (Negative) Urine Bilirubin Negative (Negative) Urine Urobilinogen Negative mg/dL mg/dL (<2.0) Leukocyte Esterase Rfl Negative KELSEY/UL KELSEY/UL (Negative) Urine RBC 21-50 /hpf H /hpf (0-2) Urine WBC 16-20 /hpf H /hpf Ur Squamous Epith Cells Rare /hpf /hpf (Few) Uric Acid Crystals Many /hpf H /hpf (None) Urine Bacteria Trace /hpf /hpf Hyaline Casts 1-2 /lpf /lpf (None) Urine Mucus Rare /lpf /lpf Patient hx anesthesia problems: none Family hx anesthesia problems: none PMFSH Past Medical History Medical History Gout HTN (hypertension) Hyperlipidemia Kidney stone Surgical History Surgical History Hx
[2021-04-26] MEDS: LACTATED RINGERS 1,000 ML 30 ML IV CONT (16:30)
--- NOTE | 2021-04-26 16:30 | PC.NURSE ---
To OR per bed, IV intact.
--- NOTE | 2021-04-26 16:51 | WPDANESEFPP ---
Anes - Eval Final PreProcedure Day of Procedure 04/26/21 16:51 Patient weight: overweight Heart: regular rate and rhythm Lungs: clear to auscultation and normal air movement Airway: Mallampati scale class II Neurological: alert and oriented Last oral intake: >/= 8 hours ASA classification: III Emergent: yes Anesthetic plan: proceed Anesthesia type and monitoring: general LMA Informed Consent: The patient's anesthetic plan and its attendant risks and benefits were discussed with the patient/family/POA. Questions were solicited and answers provided to the satisfaction of the patient/family/POA.
--- NOTE | 2021-04-26 17:01 | PM.OP ---
Procedure Note - Brief Procedure Note - Brief Date of procedure: 04/26/21 Pre-op diagnosis: Urolithiasis, acute kidney injury Surgeon: Dominick Roper MD
--- NOTE | 2021-04-26 17:02 | W.PM.PROC2 ---
Procedure Note - Detailed Date of Procedure 04/26/21 Pre-op Diagnosis Urolithiasis, acute kidney injury Post-op Diagnosis same Procedure Performed 1. Cystoscopy and left ureteral stent placement 2. Left retrograde pyelogram 3. Fluoroscopy with interpretation of images, less than 1 hour. Surgeon Dominick Roper MD Anesthesia general Indications Obstructing left ureteral stone. Findings 1. Appearance of uric acid crystals in the bladder. 2. No bladder masses or lesions. 3. Orthotopic ureteral orifices. 4. Large median lobe and obstructive lateral lobes. 5. Left retrograde pyelogram with moderate hydronephrosis. 6. Appropriate placement of a variable length, left ureteral stent. Hydronephrotic drip noted upon stent placement. Description of Procedure After a discussion of the benefits, risks and alternatives the patient offered informed written consent. He was taken to the operating room, anesthesia was induced and an LMA placed without incident. The patient was transferred to the dorsal lithotomy position and prepped and draped in the standard sterile fashion. A call to order was made to confirm patient identity and proper procedure. The cystoscope was placed atraumatically and the aforementioned findings were noted. The left ureteral orifice was approached and the a 5F catheter used to position a wire into the orifice and to the renal pelvis under fluoroscopic guidance. The catheter was removed after the wire replaced. A 6F variable length stent was placed over the wire with an excellent curl noted in the renal pelvis under closing KUB. A culture was submitted. The scope was removed atraumatically and the patient cleaned and dried of betadine prep solution. Implants 6F variable length stent Estimated Blood Loss 2 Drains Yes (6F variable length stent) Complications No immediate complications Condition stable Disposition PACU
--- NOTE | 2021-04-26 19:50 | PM.IMHP ---
H&P: HPI History of Present Illness Date/Time: 04/26/21 19:50 this is a 71-year-old male patient who has had previous history of having kidney stones. Patient came to the emergency department for complaints of left flank pain that started last night. The patient had been in the emergency room last night and was diagnosed with a kidney. the patient was prescribed pain medication last night and despite using the pain medication throughout the night he still continue to have some discomfort. CT of the abdomen from yesterday was read as lateral nephrolithiasis with obstructing 4-5 mm stone at the left ureteropelvic junction with mild left hydronephrosis. Urine cultures pending. White blood count 12.3. H&H is 12.7 and 39.5. BUN 27 creatinine 2.10 today. the patient was given IV fluids, IV Tylenol, IV Pepcid, andIV morphine. Urology was called and took the patient to OR. the patient had a cystoscopy and left ureteral stent placement. Left retrograde pyelogram. Fluoroscopy with interpretation of images less than 1 hour. the patient is being admitted for her observation on the date of service 04/26/2021 Chief Complaint: flank pain Review of Systems Review of Systems: All systems reviewed & are unremarkable except as noted in HPI and below Constitutional: Constitutional: Reports as per HPI and Reports no additional constitutional complaints Eyes: Eyes: Reports as per HPI and Reports no additional eye complaints ENT: Reports system reviewed and no additional complaints, except as documented and Reports Normal hearing present Cardiovascular: Cardiovascular: Reports no additional cardiovascular complaints Respiratory: Respiratory: Reports no additional respiratory complaints and Reports no additional respiratory complaints Gastrointestinal: Gastrointestinal: Reports as per HPI and Reports no additional gastrointestinal complaints Musculoskeletal: Musculoskeletal: Reports no additional musculoskeletal complaints Integumentary/Breasts: Skin/Breast: Reports system reviewed and no additional complaints, except as docu and Reports as per HPI Neurologic: Reports system reviewed and no additional complaints, except as documented, Reports as per HPI and Reports Normal hearing present Psychiatric: Psychiatric: Reports no additional psychiatric complaints and Reports as per HPI Endocrine: Endocrine: Reports no additional endocrine complaints Hematologic/Lymphatic: Hematologic/Lymphatic: Reports no additional hematologic/lymphatic complaints Allergic/Immunologic: Allergic/Immunologic: Reports no additional allergic/immunologic complaints [facility] Past Medical History Medical History (Updated 04/26/21 @ 20:18 by Annabella Saavedra NP) Gout HTN (hypertension) Hyperlipidemia Kidney stone Surgical History Surgical History (Updated 04/26/21 @ 19:58 by Annabella Saavedra NP) H/O repair of rotator cuff Hx of CABG x3 Hx of tonsillectomy Family History Family History (Updated 04/26/21 @ 20:00 by Annabella Saavedra NP) Father MVA (motor vehicle accident) Social History Social History (Updated 04/26/21 @ 20:01 by Annabella Saavedra NP) Social History: the patient is still working part-time at his car [employer]. 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 The patient is a full code. The patient denies any alcohol tobacco marijuana or illicit drugs. Smoking status: Never smoker Alcohol intake: never Substance use: never Gender identity (if verbalized by the patient): Male Spiritual care concerns: No Meds Home Medications and Allergies Home Medications Medication Instructions Recorded Confirmed Type tamsulosin [Flomax] 0.4 mg PO DAILY #10 cap 04/25/21 04/26/21 Rx amlodipine 5 mg PO DAILY 04/26/21 04/26/21 History aspirin 81 mg PO DAILY 04/26/21 04/26/21 History atorvastatin 20 mg PO HS 04/26/21 04/26/21 History losartan 50 mg PO DAILY 04/26/21 04/26/21 History metoprolol tartrate 25
[2021-04-26] MEDS: ATORVASTATIN 20 MG TABLET PO (21:27)
[2021-04-26] MEDS: METOPROLOL TARTRATE 25 MG TABLET PO (21:27)
[2021-04-27] VITALS: BP 129/59; PULSE 58; RESP 16; TEMP 36.1; O2SAT 96
[2021-04-27 05:26] VITALS: BP 125/51; PULSE 71; RESP 16; TEMP 36.1; O2SAT 96
[2021-04-27 05:55] LABS: Basophils Percent Auto 0.1 % (0.2-1.2); Hematocrit 38.1 % (42.0-52.0); Hemoglobin 11.9 g/dL (14.0-18.0); Immature Granulocyte Absolute 0.03 K/mm3 (0.00-0.031); Immature Granulocyte Percent A 0.4 % (0-0.5); Lymphocytes Absolute Auto 0.77 K/mm3 (0.9-3.2); Lymphocytes Percent Auto 9.3 % (18.3-44.2); Mean Corpuscular HGB Conc 31.2 g/dl (32-36); Mean Corpuscular Hemoglobin 30.2 pg (26-34); Mean Corpuscular Volume 96.7 fl (80-100); Mean Platelet Volume 10.7 fl (7.4-10.4); Monocytes Absolute Auto 0.3 K/mm3 (0.1-0.6); Monocytes Percent Auto 3.4 % (2.6-8.5); Neutrophils Absolute Auto 7.2 K/mm3 (1.3-6.7); Neutrophils Percent Auto 86.8 % (45.5-73.1); Platelet Count Result 164 k/mm3 (150-375); Red Blood Count 3.94 M/mm3 (4.6-6.20); Red Cell Distribution Width 12.6 % (11.5-14.5); White Blood Count 8.3 K/mm3 (4.5-10.0)
[2021-04-27 06:06] LABS: Anion Gap 8 mmol/L (8-16); Blood Urea Nitrogen 22 mg/dL (9-20); Calcium 8.9 mg/dL (8.4-10.2); Carbon Dioxide 23 mmol/L (22-30); Chloride 108 mmol/L (98-107); Estimated CRCL calculation 39 ml/min; Estimated Glomerular Filt Rate 46; Glucose 130 mg/dL (65-110); Sodium 139 mmol/L (137-145)
[2021-04-27 09:25] VITALS: PULSE 71
[2021-04-27] MEDS: TAMSULOSIN HCL 0.4 MG CAPSULE PO (09:25)
[2021-04-27] MEDS: METOPROLOL TARTRATE 25 MG TABLET PO (09:25)
[2021-04-27] MEDS: amLODIPine BESYLATE 5 MG TABLET PO (09:26)
[2021-04-27] MEDS: FAMOTIDINE 20 MG/2 ML VIAL IV PUSH (11:44)
--- NOTE | 2021-04-27 12:36 | PM.DS ---
DS: Admitting Diagnosis Admitting Diagnosis Admitting Diagnosis: kidney stone DS: Discharge Diagnosis Discharge Diagnosis (1) Urolithiasis: Code(s): N20.9 - Urinary calculus, unspecified Status: Acute Assessment and Plan: Patient underwent a cystoscopy with left ureteral stent placement 04/26/21 and did well with that - he had some slight irritation from the stent at discharge but overall feeling much better. No flank pain - he is going to follow up with Dr. Roper as outpt for stone tx -discharged on cipro (2) Acute kidney injury: Code(s): N17.9 - Acute kidney failure, unspecified Status: Acute Assessment and Plan: Patient had an obstructive nephropathy due to the kidney stone but Cr back to baseline 1.5 at d/c -pt unaware of hx of slight renal dysfunction and is going to f/u with pcp or nephrology about this. Continue losartan. (3) Hyperlipidemia: Code(s): E78.5 - Hyperlipidemia, unspecified Status: Chronic Assessment and Plan: Continue with atorvastatin. (4) HTN (hypertension): Code(s): I10 - Essential (primary) hypertension Status: Acute Assessment and Plan: last bp 125/51 -Continue losartan, metoprolol and norvasc. DS: Summary Hospital Course Hospital Course: Pt is a 71 y/o male with a PMH of HTN and kidney stones who presented to the ED for flank pain. Vitals in the ER were temperature 36.8? C, pulse 60, respiratory rate 18, blood pressure 139/66, pulse 97. Initial white blood cell count 12.3, hemoglobin 12.7, hematocrit 39.5, platelets 169. Original creatinine 2.1. UA with red blood cells and few white blood cells. Abdominal CT showed bilateral nephrolithiasis with obstructing 4-5 mm stone at the left ureteropelvic junction with mild left hydronephrosis. Patient was admitted to the hospitalist service and underwent a cystoscopy with stent insertion. His creatinine went back to his baseline of 1.5 with this treatment. Urine culture negative. I did speak with Urology who recommended of short course of antibiotics and follow-up with urology outpatient. The day of discharge patient was feeling great and walking around the room. I educated him about his chronic kidney disease and that he should follow-up with primary care physician. He was educated about the worrisome signs and symptoms come back to emergency room for and was discharged in stable condition. Status at Discharge Functional status at discharge: independent ambulation Overall status at discharge: patient is back to baseline Time Spent with Patient Time attestation: Total time spent providing and/or coordinating discharge services:36 min Exam Narrative: Exam Narrative: General: Well developed well nourished patient in NAD HEENT: normocephalic Neck: supple Neuro: Alert and oriented x4 CV:RRR Resp:CTA Abd: Soft, non distended. No pain to palpation. Positive bowel sounds Extremities: No swelling, erythema, or pain to palpation. No flank pain DS: Data Data Completed and Pending Labs on day of discharge: Labs from last 24 hours 04/27/21 04/27/21 04/26/21 05:39 05:38 10:00 WBC 8.3 RBC 3.94 L Hgb 11.9 L Hct 38.1 L MCV 96.7 MCH 30.2 MCHC 31.2 L RDW 12.6 Plt Count 164 MPV 10.7 H Immature Gran % (Auto) 0.4 Neut % (Auto) 86.8 H Lymph % (Auto) 9.3 L [place] % (Auto) 3.4 Eos % (Auto) 0.0 Baso % (Auto) 0.1 L Lymph # (Auto) 0.77 L [place] # (Auto) 0.3 Eos # (Auto) 0.0 Baso # (Auto) 0.0 Abs Immat Gran (auto) 0.03 Absolute Neuts (auto) 7.2 H Absolute Nucleated RBC 0.0 Nucleated RBC % 0.0 Sodium 139 Potassium 5.0 Chloride 108 H Carbon Dioxide 23 Anion Gap 8 BUN 22 H Creatinine 1.50 H Estim Creat Clear Calc 39 Estimated GFR 46 L Glucose 130 H Calcium 8.9 Urine Color Yellow Urine Appearance Turbid H Urine pH 5.0 Ur S
--- NOTE | 2021-04-27 12:59 | WPDUROPN2 ---
Progress Note: A&P Assessment and Plan (1) Urolithiasis: Code(s): N20.9 - Urinary calculus, unspecified Status: Acute Assessment and Plan: Patient to go home today, we discussed his plan for stone treatment with Dr. Roper as an outpatient. We also discussed signs and symptoms of infection and normal side effects of having a stent. Subjective Subjective Date/Time Seen: 04/27/21 12:59 POD #1 Cystoscopy, left stent placement left retrograde pyelogram. Patient doing very well, c/o dysuria with urination only and urinary frequency. He has no other complaints. He was sitting up on the couch in the room fully dressed and ready to be discharged home. Review of Systems Cardiovascular: Cardiovascular: Denies chest pain Respiratory: Respiratory: Reports no additional respiratory complaints Gastrointestinal: Gastrointestinal: Denies abdominal pain, Denies nausea and Denies vomiting Genitourinary: Genitourinary: Denies hematuria, Reports dysuria, Denies flank pain and Reports urinary frequency Exam Resp: Effort & Inspection: normal respiratory effort Cardio: Rate: regular rate GI: GI Palp: Yes Soft to palpation and No Tenderness to palpation present (GI) : General: Yes no CVA tenderness Extrem: General: no edema Objective Data Vital Signs Vital Signs: Vital Signs - 24 hr 04/26/21 14:24 04/26/21 17:00 04/26/21 17:15 Temperature 98.5 F Pulse Rate 57 L 66 65 Respiratory Rate 18 18 11 L Blood Pressure 166/66 H 96/58 L 131/68 Pulse Oximetry 94 93 98 04/26/21 17:30 04/26/21 17:45 04/26/21 20:00 Temperature 97 F L Pulse Rate 69 67 70 Respiratory Rate 12 14 16 Blood Pressure 132/57 L 141/62 H 127/55 L Pulse Oximetry 93 93 93 04/26/21 21:27 04/27/21 00:00 04/27/21 05:26 Temperature 97 F L 97 F L Pulse Rate 70 58 L 71 Respiratory Rate 16 16 Blood Pressure 129/59 L 125/51 L Pulse Oximetry 96 96 04/27/21 09:25 Temperature Pulse Rate 71 Respiratory Rate Blood Pressure Pulse Oximetry Intake/Output Intake/Output: Intake & Output 07/16/21 07/17/21 07/18/21 07/19/21 23:59 23:59 23:59 23:59 Intake Total 2300 1560 Output Total 600 Balance 2300 960 Meds/Results Radiology Results: ITS Impressions Abdomen X-Ray 04/26/21 11:26 IMPRESSION: 1. No definite urolithiasis identified. Retrograde Pyelogram 04/26/21 21:20 IMPRESSION: 1. Proximal left ureteral stone with mild left hydronephrosis. 2. Placement of a left internal ureteral stent with proximal loop in the left renal pelvis. It is unclear from the provided images whether the stone has been extracted or refluxed back into the left renal collecting system. Labs Labs: Laboratory Results - last 24 hr 04/26/21 04/27/21 04/27/21 10:00 05:38 05:39 WBC 8.3 RBC 3.94 L Hgb 11.9 L Hct 38.1 L MCV 96.7 MCH 30.2 MCHC 31.2 L RDW 12.6 Plt Count 164 MPV 10.7 H Immature Gran % (Auto) 0.4 Neut % (Auto) 86.8 H Lymph % (Auto) 9.3 L [place] % (Auto) 3.4 Eos % (Auto) 0.0 Baso % (Auto) 0.1 L Lymph # (Auto) 0.77 L [place] # (Auto) 0.3 Eos # (Auto) 0.0 Baso # (Auto) 0.0 Abs Immat Gran (auto) 0.03 Absolute Neuts (auto) 7.2 H Absolute Nucleated RBC 0.0 Nucleated RBC % 0.0 Sodium 139 Potassium 5.0 Chloride 108 H Carbon Dioxide 23 Anion Gap 8 BUN 22 H Creatinine 1.50 H Estim Creat Clear Calc 39 Estimated GFR 46 L Glucose 130 H Calcium 8.9 Urine Color Yellow Urine Appearance Turbid H Urine pH 5.0 Ur Specific [place] 1.030 Urine Protein Negative Urine Glucose (UA) Negative Urine Ketones Negative Ur Blood (Man) 2+ H Urine Nitrate Negative Urine Bilirubin Negative Urine Urobilinogen Negative Leukocyte Esterase Rfl Negative Urine RBC 21-50 H Urine WBC 16-20 H Ur Squamous Epith Cells Rare Uric Acid Crystals Many H Urine Bacteria Trace Hy
== END 2021-04-27 12:49 | disposition home or self-care (01) ==
LOC: ANHED 14:19 → ANH3MED 15:36
PROVIDERS: Emergency Medicine Emergency Medical Services; Urology; Admitting Provider Internal Medicine; Emergency Provider Emergency Medicine; Visit Provider Physician Assistant
PROC: (CPT 52352; principal; 2021-04-26 17:00)
DX: N13.2 Hydronephrosis with renal and ureteral calculous obstruction (principal); N17.9 Acute kidney failure, unspecified; I10 Essential (primary) hypertension; E78.5 Hyperlipidemia, unspecified; M10.9 Gout, unspecified; N40.0 Benign prostatic hyperplasia without lower urinary tract symptoms; Z95.1 Presence of aortocoronary bypass graft
CPT/HCPCS: 52332; 36415; 74018; 74420; 80048; 81001; 85025; 87086; 96361; 96374; 96375; 96376; 99285; A9270; C1758; C1769; C2617; G0378; J0131; J1100; J2270; J2405; J2704; J3010; J7030; J7120; Q9966

== ENCOUNTER 2022-02-09 15:27 | Emergency (ER) | payer MEDICARE, SELFPAY ==
--- NOTE | ~2022-02-09 | CT_ITS ---
EXAMINATION: CT abdomen pelvis wo con DATE: 02/09/2022 16:11 INDICATION: Left flank pain TECHNIQUE: Computed tomography (CT) of the abdomen and pelvis was performed without intravenous contr ast. The dose-length product (DLP) was 289.54 mGy-cm. Automated exposure control and iterative recons truction technique were employed. COMPARISON: 04/25/2021 FINDINGS: The lung bases are clear. The heart size is normal. There is a small sliding hiatal hernia. Punctate calcifications in an otherwise normal spleen likely represent healed granulomatous disease. The liver, pancreas, gallbladder, and adrenal glands are normal. There is a 7 mm stone at the left u reteropelvic junction which causes mild hydronephrosis. Cysts of the left kidney measure up to 10.1 c m. There are two nonobstructing stones of the right kidney which measure 4 mm and 3 mm. No stones are identified in the right ureter or in the bladder. There is calcified atherosclerosis of the aorta an d many of the other arteries. No pathologically enlarged abdominal or pelvic lymph nodes are identifi ed. Colonic diverticulosis is present without evidence of diverticulitis. The appendix is normal. The re is a small fat-containing umbilical hernia. There is moderate lumbar spondylosis. IMPRESSION: 1. 7 mm stone at the left ureteropelvic junction causing mild hydronephrosis. 2. Nonobstructing right nephrolithiasis. Reviewed, dictated and finalized at location A.
[2022-02-09 15:43] VITALS: BP 154/83; PULSE 65; RESP 18; TEMP 36.4; O2SAT 99
--- NOTE | 2022-02-09 15:57 | ED.ABDPAIN ---
HPI - Abdominal Pain General Chief Complaint: Abdominal Pain Stated Complaint: flank pain and urinary symptoms - hx kidney stones Time Seen by Provider: 02/09/22 15:52 History of Present Illness HPI narrative: 72-year-old male presents to the emergency room for evaluation of left flank pain. Patient states pain occurred suddenly proximately 3 hours ago, describes pain as a sharp stabbing pain that radiates into his groin. Patient has a history of kidney stones. Patient denies nausea vomiting, dysuria or fever. Related Data Home Medications Medication Instructions Recorded Confirmed amlodipine 5 mg PO DAILY 04/26/21 04/26/21 aspirin 81 mg PO DAILY 04/26/21 04/26/21 atorvastatin 20 mg PO HS 04/26/21 04/26/21 losartan 50 mg PO DAILY 04/26/21 04/26/21 metoprolol tartrate 25 mg PO BID 04/26/21 04/26/21 Allergies Allergy/AdvReac Type Severity Reaction Status Date / Time No Known Allergies Allergy Verified 04/26/21 16:51 Review of Systems Review of Systems: CONSTITUTIONAL: Denies fever, chills, or sweats. EYES: Denies visual changes, redness, or discharge. ENT: Denies rhinorrhea, congestion, sore throat, or otalgia. CARDIOVASCULAR: Denies chest pain, palpitations, or edema. RESPIRATORY: Denies cough or dyspnea. GASTROINTESTINAL: Reports left flank pain GENITOURINARY: Denies dysuria or hematuria. SKIN: Denies rash or itching. MUSCULOSKELETAL: Denies back pain, joint pain, or myalgia. NEUROLOGIC: Denies headache, numbness, dizziness, or weakness. PSYCHIATRIC: Denies anxiety or depression. 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 The patient is a full code. The patient denies any alcohol tobacco marijuana or illicit drugs. Smoking status: Never smoker Alcohol intake: never Substance use: never Gender identity (if verbalized by the patient): Male Spiritual care concerns: No Exam Narrative: GENERAL: Well-appearing, well-nourished, and in no acute distress. HEAD: Normocephalic, atraumatic. EYES: PERRLA and EOMI. CHEST: Clear to auscultation. No respiratory distress. No wheezes rales or rhonchi HEART: Regular rate and rhythm. No murmur heard. Normal peripheral pulses. ABDOMEN: Left CVA tenderness, bowel sounds active x4 EXTREMITIES: Normal range of motion. No edema. SKIN: Warm, dry, no rash. NEURO: No focal deficits. Alert and oriented x3. PSYCH: Normal mood and affect. Course Vital Signs Vital signs: Vital Signs Temperature 36.4 C 02/09/22 15:43 Pulse Rate 65 02/09/22 15:43 Respiratory Rate 18 02/09/22 15:43 Blood Pressure 154/83 H 02/09/22 15:43 Pulse Oximetry 99 02/09/22 15:43 Temperature 36.4 C 02/09/22 15:43 Pulse Rate 65 02/09/22 15:43 Respiratory Rate 18 02/09/22 15:43 Blood Pressure 154/83 H 02/09/22 15:43 Pulse Oximetry 99 02/09/22 15:43 MDM - Abdominal Pain MDM Narrative Medical decision making narrative: 17-year-old male presented the emergency room with complaints of left flank pain with acute onset earlier today. Patient states he has a known history of urolithiasis. CT scan shows a 7 mm stone in the left uteropelvic junction with mild hydronephrosis. CBC showed a white count of 10.6 otherwise unremarkable. CMP was unremarkable. Case consulted with Dr. Zepeda, he is willing to follow-up with the patient in outpatient setting this w
[2022-02-09] MEDS: KETOROLAC 30 MG/ML VIAL (*BKC) IV PUSH (16:02)
[2022-02-09] MEDS: SODIUM CHLORIDE 0.9% IV 1,000 ML 999 ML IV CONT (16:03)
[2022-02-09 16:12] LABS: Basophils Absolute Auto 0.1 K/mm3 (0.0-0.1); Basophils Percent Auto 0.5 % (0.2-1.2); Eosinophils Absolute Auto 0.2 K/mm3 (0-0.3); Eosinophils Percent Auto 1.7 % (0-4.4); Hemoglobin 13.8 g/dL (14.0-18.0); Immature Granulocyte Absolute 0.03 K/mm3 (0.00-0.031); Immature Granulocyte Percent A 0.3 % (0-0.5); Lymphocytes Absolute Auto 2.16 K/mm3 (0.9-3.2); Lymphocytes Percent Auto 20.5 % (18.3-44.2); Mean Corpuscular HGB Conc 32.9 g/dl (32-36); Mean Corpuscular Hemoglobin 31.1 pg (26-34); Mean Corpuscular Volume 94.6 fl (80-100); Mean Platelet Volume 10.5 fl (7.4-10.4); Monocytes Absolute Auto 0.8 K/mm3 (0.1-0.6); Monocytes Percent Auto 7.8 % (2.6-8.5); Neutrophils Absolute Auto 7.3 K/mm3 (1.3-6.7); Neutrophils Percent Auto 69.2 % (45.5-73.1); Platelet Count Result 239 k/mm3 (150-375); Red Blood Count 4.44 M/mm3 (4.6-6.20); Red Cell Distribution Width 12.4 % (11.5-14.5); White Blood Count 10.6 K/mm3 (4.5-10.0)
[2022-02-09 16:19] LABS: Appearance Urine Cloudy (Clear); Bilirubin Urine 1+ (Negative); Blood Urine 3+ (Negative); Color Urine Yellow (Yellow); Glucose Urine UA Negative (Negative); Ketones Urine Trace mg/dL (Negative); Leukocyte Esterase Ur Negative LEU/UL (Negative); Nitrate Urine Negative (Negative); Protein Urine 2+ mg/dL (Negative); Specific Grav Ur 1.025 (1.001-1.035); Urobilinogen Urine 0.2 mg/dL (<2.0)
[2022-02-09 16:22] LABS: Alanine Aminotransferase 27 U/L (4-50); Albumin Level 4.5 g/dL (3.5-5.1); Alkaline Phosphatase 73 U/L (38-126); Anion Gap 8 mmol/L (8-16); Aspartate Amino Transferase 28 U/L (17-59); Bilirubin,Total 0.7 mg/dL (0.2-1.3); Blood Urea Nitrogen 22 mg/dL (9-20); Carbon Dioxide 25 mmol/L (22-30); Chloride 106 mmol/L (98-107); Estimated CRCL calculation 48 ml/min; Estimated Glomerular Filt Rate 60; Glucose 116 mg/dL (65-110); Potassium 4.1 mmol/L (3.4-5.0); Sodium 139 mmol/L (137-145)
[2022-02-09 16:33] LABS: Bacteria Urine Trace /hpf; Mucus Urine Few /lpf; RBC Urine >75 /hpf (0-2); Squamous Epithelial Cell Urine Rare /hpf (Few)
[2022-02-09 16:37] LABS: Add Urine Microscopic? YES
--- NOTE | 2022-03-04 11:00 | PC.NURSE ---
LATE ENTRY This note is being entered to document information to the patient's record. The following information was omitted on [02/09/22], by [Jacqueline Zelaya RN]. NS stop time is 1700.
--- NOTE | 2022-03-04 12:16 | PC.NURSE ---
LATE ENTRY This note is being entered to document information to the patient's record. The following information was omitted on [02/09/22], by [Jacqueline Zelaya RN]. Iv Stop time 1700
== END 2022-02-09 18:10 | disposition home or self-care (01) ==
PROVIDERS: Emergency Provider Nurse Practitioner Family
DX: N13.2 Hydronephrosis with renal and ureteral calculous obstruction (principal); I10 Essential (primary) hypertension; E78.5 Hyperlipidemia, unspecified; Z95.1 Presence of aortocoronary bypass graft; Z87.442 Personal history of urinary calculi
CPT/HCPCS: 36415; 74176; 80053; 81001; 85025; 96361; 96374; 99284; J1885; J7030

== ENCOUNTER 2022-04-06 09:46 | Outpatient (CLI) | payer MEDICARE, SELFPAY ==
--- NOTE | ~2022-04-06 | US_ITS ---
EXAMINATION: US retroperitoneal comp DATE: 04/06/2022 10:16 INDICATION: Left ureteral stone TECHNIQUE: Multiple grayscale and Doppler ultrasound images of the kidneys were obtained. COMPARISON: CT, 02/09/2022 FINDINGS: The right kidney measures 11.5 x 4.3 x 5.0 cm. Right nephrolithiasis seen on the comparison CT is not definitely identified. The left kidney measures 12.2 x 5.3 x 5.2 cm. Cysts of the left kid martin measure up to 9.5 cm. The kidneys demonstrate normal parenchymal echogenicity. There is no hydron ephrosis. There is a questionable hyperechoic focus in the urinary bladder. The bladder is otherwise unremarkable. IMPRESSION: 1. Possible stone in the bladder. No hydronephrosis. Reviewed, dictated and finalized at location A.
== END 2022-04-06 09:47 | disposition home or self-care (01) ==
DX: N20.1 Calculus of ureter (principal); N20.0 Calculus of kidney; N28.1 Cyst of kidney, acquired
CPT/HCPCS: 76770

== ENCOUNTER 2022-12-12 10:51 | Emergency (ER) | payer MEDICARE, SELFPAY ==
[2022-12-12 11:00] VITALS: BP 142/68; PULSE 69; RESP 20; TEMP 36.1; O2SAT 100
--- NOTE | 2022-12-12 12:00 | ED.GENADULT ---
HPI - General Adult General Chief complaint: Ear Stated complaint: Ear Irritation Source: patient Mode of arrival: ambulatory Limitations: no limitations History of Present Illness HPI narrative: Patient presents for evaluation of right-sided ear symptoms. He states over the last 6 days his right ear has been bothering him. He denies pain per se. He has muffled hearing on the right. He thought his symptoms were related to cerumen impaction. Denies tinnitus or drainage from the ear. He attempted to clean his ear out with a q tip. His symptoms did precede that. No fever, chills, nausea, vomiting, cough or SOB. Related Data Home Medications Medication Instructions Recorded Confirmed amlodipine 5 mg tablet 5 mg PO DAILY 04/26/21 12/12/22 aspirin 81 mg tablet 81 mg PO DAILY 04/26/21 12/12/22 atorvastatin 20 mg tablet 20 mg PO HS 04/26/21 12/12/22 losartan 50 mg tablet 50 mg PO DAILY 04/26/21 12/12/22 metoprolol tartrate 25 mg tablet 25 mg PO BID 04/26/21 12/12/22 Allergies Allergy/AdvReac Type Severity Reaction Status Date / Time No Known Allergies Allergy Verified 12/12/22 10:59 Review of Systems Review of Systems: CONSTITUTIONAL: Denies fever, chills, or sweats. EYES: Denies visual changes, redness, or discharge. ENT: Reports muffled hearing on the right. Denies pain, tinnitus or drainage from right ear. Denies left-sided otalgia. Denies sore throat. CARDIOVASCULAR: Denies chest pain, palpitations, or edema. RESPIRATORY: Denies cough or dyspnea. GASTROINTESTINAL: Denies abdominal pain, nausea, vomiting, or diarrhea. GENITOURINARY: Denies dysuria or hematuria. SKIN: Denies rash or itching. MUSCULOSKELETAL: Denies back pain, joint pain, or myalgia. NEUROLOGIC: Denies headache, numbness, dizziness, or weakness. PSYCHIATRIC: Denies anxiety or depression. 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 The patient is a full code. The patient denies any alcohol tobacco marijuana or illicit drugs. Smoking status: Never smoker Alcohol intake: never Substance use: never Gender identity (if verbalized by the patient): Male Spiritual care concerns: No Exam Narrative: GENERAL: Well-appearing, well-nourished, and in no acute distress. HEAD: Normocephalic, atraumatic. EYES: PERRLA and EOMI. ENT: Nares clear, no rhinorrhea or epistaxis. Mucous membranes moist. Oropharynx without tonsillar hypertrophy exudate or other lesions. There is yellow exudate in the right ear canal. I am unable to visualize the right TM. Left TM appears normal. NECK: Supple. No adenopathy or masses. No carotid bruits or JVD CHEST: Clear to auscultation. No respiratory distress. No wheezes rales or rhonchi HEART: Regular rate and rhythm. No murmur heard. Normal peripheral pulses. ABDOMEN: Soft, nontender, nondistended, normal active bowel sounds. EXTREMITIES: Normal range of motion. No edema. SKIN: Warm, dry, no rash. NEURO: No focal deficits. Alert and oriented x3. PSYCH: Normal mood and affect. Course Course Emergency Course: This is a 72-year-old male who presented for evaluation of right-sided ear symptoms including muffled hearing. initially thought he had a cerumen impaction. I irrigated his right ear with half hydrogen peroxide and half water. After removing yellow exudate from the r
== END 2022-12-12 12:08 | disposition home or self-care (01) ==
PROVIDERS: Emergency Provider Nurse Practitioner
DX: H66.91 Otitis media, unspecified, right ear (principal); I10 Essential (primary) hypertension; E78.5 Hyperlipidemia, unspecified; Z95.1 Presence of aortocoronary bypass graft
CPT/HCPCS: 99213; G0463

== ENCOUNTER 2022-12-26 20:23 | Emergency (ER) | payer MEDICARE, SELFPAY ==
[2022-12-26 20:46] VITALS: BP 125/60; PULSE 70; RESP 18; TEMP 36.6; O2SAT 98
--- NOTE | 2022-12-26 23:25 | PC.NURSE ---
Pt called for vitals, no answer
--- NOTE | 2022-12-27 00:39 | PC.NURSE ---
Pt called for vitals, no answer
== END 2022-12-27 00:54 | disposition left against medical advice (07) ==
LOC: ANHED 12-27 00:46
DX: M25.472 Effusion, left ankle (principal)
CPT/HCPCS: 99199

== ENCOUNTER 2023-07-22 09:12 | Emergency (ER) | payer MEDICARE, SELFPAY ==
[2023-07-22 09:27] VITALS: BP 133/60; PULSE 77; RESP 16; TEMP 36.9; O2SAT 100
--- NOTE | 2023-07-22 09:34 | ED.URI ---
HPI - URI/Sore Throat General Chief Complaint: Upper Respiratory Infection Stated Complaint: Sore Throat Time Seen by Provider: 07/22/23 09:34 Source: patient, RN notes reviewed and old records reviewed Mode of arrival: ambulatory Limitations: no limitations History of Present Illness HPI Narrative: 73-year-old male presents to the [facility] with complaints of sore throat, body aches, fatigue since Tuesday, 2 days. Took a home COVID test Tuesday night once his symptoms started, reports that negative. States he has been taking Tylenol Denies fevers. Denies chest pain. Denies shortness of breath Related Data Home Medications Medication Instructions Recorded Confirmed amlodipine 5 mg tablet 5 mg PO DAILY 04/26/21 07/22/23 aspirin 81 mg tablet 81 mg PO DAILY 04/26/21 07/22/23 atorvastatin 20 mg tablet 20 mg PO HS 04/26/21 07/22/23 losartan 50 mg tablet 50 mg PO DAILY 04/26/21 07/22/23 metoprolol tartrate 25 mg tablet 25 mg PO BID 04/26/21 07/22/23 valacyclovir 500 mg tablet 500 mg PO DIRECTED 07/22/23 07/22/23 Allergies Allergy/AdvReac Type Severity Reaction Status Date / Time No Known Allergies Allergy Verified 07/22/23 09:16 Review of Systems Review of Systems: All systems reviewed & are unremarkable except as noted in HPI and below Constitutional: Constitutional: Reports as per HPI and Reports body ache(s) Eyes: Eyes: Reports no additional eye complaints ENT: Reports as per HPI and Reports sore throat Cardiovascular: Cardiovascular: Reports no additional cardiovascular complaints, Denies chest pain and Denies dyspnea Respiratory: Respiratory: Reports no additional respiratory complaints, Denies chest congestion, Denies cough and Denies dyspnea Gastrointestinal: Gastrointestinal: Reports no additional gastrointestinal complaints, Denies abdominal pain, Denies nausea and Denies vomiting Musculoskeletal: Musculoskeletal: Reports no additional musculoskeletal complaints Integumentary/Breasts: Skin/Breast: Reports system reviewed and no additional complaints, except as docu Neurologic: Reports system reviewed and no additional complaints, except as documented Psychiatric: Psychiatric: Reports no additional psychiatric complaints Allergic/Immunologic: Allergic/Immunologic: Reports no additional allergic/immunologic complaints PMFSH Past Medical History Medical History HTN (hypertension) Hyperlipidemia Kidney stone Surgical History Surgical History H/O repair of rotator cuff Hx of CABG x3 Hx of tonsillectomy Family History Family History Father MVA (motor vehicle accident) Social History Social History Social History: 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 The patient is a full code. The patient denies any alcohol tobacco marijuana or illicit drugs. Smoking status: Never smoker Alcohol intake: never Substance use: never Gender identity (if verbalized by the patient): Male Spiritual care concerns: No Comments At the time of my signature, I reviewed and agree with the nursing past medical, surgical, social, and family history. There is no relevant family history pertinent to the patient complaint. Exam Const: General: cooperative, healthy appearing, comfortable, no acute distress, well developed, alert and well nourished Nutritional Appearance: well nourished Orientation/consciousness: patient oriented x3 Limitations: no limitations HENMT: Head: normal to inspection Ears: hearing grossly normal bilaterally, external ears normal, TM's normal bilaterally and EAC's normal Face/Nose/Sinus: Normal external nose present, Normal nares present, Normal nasal mucous membranes
== END 2023-07-22 10:05 | disposition home or self-care (01) ==
PROVIDERS: Emergency Provider Nurse Practitioner
DX: B34.9 Viral infection, unspecified (principal); E78.5 Hyperlipidemia, unspecified; I10 Essential (primary) hypertension; Z20.822 Contact with and (suspected) exposure to COVID-19; Z79.82 Long term (current) use of aspirin; Z79.899 Other long term (current) drug therapy
CPT/HCPCS: 87081; 87426; 87804; 87880; 99213; C9803; G0463